=== PATIENT | female | born 1965 | race Caucasian/White ===

== ENCOUNTER 2024-07-18 14:56 | Outpatient (OUT) | payer BC, SELFPAY ==
--- NOTE | 2024-07-18 15:02 | CA_ITS ---
Patient Name: VERONICA BISHOP MR#: [id number] : 1965 Exam Date: 07/18/2024 Ordering Doctor: MARISOL GU M.D. ECHOCARDIOGRAM REPORT PROCEDURE: CA ECHO DOPPLER COMPLETE INDICATIONS: HORTA COMPARISON: None. DESCRIPTION: COMPLETE ECHOCARDIOGRAM Real-time transthoracic echocardiography with 2D, M-mode, spectral and color flow Doppler performed. QUALITY: Technical quality was adequate. LEFT VENTRICLE: Normal chamber size. Borderline left ventricular hypertrophy. Global left ventricular systolic function is normal. LV EF: Calculated left ventricular ejection fraction is 66% DIASTOLIC: Normal diastolic function. ATRIAL SEPTUM: LEFT ATRIUM: Normal chamber size. RIGHT ATRIUM: Mild dilatation. RIGHT VENTRICLE: Normal chamber size. Normal right ventricular systolic function. TRICUSPID VALVE: Normal mobility and thickness. No stenosis with mild regurgitation. Moderate pulmonary hypertension. RVSP 56 mmHg MITRAL VALVE: Normal mobility and thickness. No evidence of mitral valve stenosis. Mild mitral annular calcification. Trivial mitral regurgitation. AORTIC VALVE: Normal trileaflet appearance. No visible sclerosis. Normal leaflet mobility. No evidence of aortic valve stenosis. No aortic regurgitation. AORTIC ROOT: Normal diameter and appearance. Mildly dilated ascending aorta measuring 3.7 cm. PULMONIC VALVE: Normal thickness and mobility. No stenosis. Trivial regurgitation. PERICARDIUM: No evidence of pericardial effusion. IVC: Moderate dilatation. Partial collapse. PLEURA: CONCLUSION: 1. Normal left ventricular size and systolic function. Estimated LVEF is 60%. 2. Normal diastolic function. 3. Normal right ventricular size and systolic function. 4. Mild tricuspid regurgitation. 5. Moderately elevated right-sided pressures. RVSP is 56 mmHg. 6. Mildly dilated ascending aorta. 7. No pericardial effusion. Adult Echocardiography Procedure Report Left Ventricle LVEDD (3.7 - 5.6 cm): 5.24 cm LVESD (2.2 - 4.0 cm): 3.19 cm LVIVS thickness (0.6 - 1.2 cm): 1.00 cm LVPW thickness (0.5 - 1.0 cm): 0.94 cm e': 0.10 m/s E - e': 11.18 LVOT Max Gradient: 2.42 mm[Hg] LVOT Area (cm2): 0.78 m/s Peak Velocity (LVOT): 0.78 m/s Mean Velocity (LVOT): 0.56 m/s LVOT Diameter 2.25 cm Left Ventricular Ejection Fraction: 60 % Left Atrium LA Volume Index (2D A2C): 21.39 ml/m2 Left Atrium Systolic Dimension: 3.17 cm Mitral Valve MV E to A Ratio: 1.61 Mitral Valve A-Wave Peak Velocity: 0.66 m/s Mitral Valve E-Wave Peak Velocity: 1.07 m/s Right Ventricle RV Internal Diastolic Dimension: 4.16 cm Aorta AO Root Diam: 3.26 cm Ascending Ao Diam: 3.66 cm Aortic Valve AoV Area (Peak Jason): 2.58 cm2, 2.58 cm2 AoV Area (VTI): 2.62 cm2, 2.62 cm2 Peak Velocity(Antegrade Flow): 1.20 m/s Peak Gradient(Antegrade Flow): 5.78 mm[Hg] Mean Velocity(Antegrade Flow): 0.78 m/s Mean Gradient(Antegrade Flow): 2.85 mm[Hg] Velocity Time Integral: 26.99 cm Tricuspid Valve Peak Velocity (Regurgitant Flow): 2.20 m/s, 2.73 m/s, 3.22 m/s Pulmonic Valve Mean Gradient: 2.76 mm[Hg], 2.90 mm[Hg] Mean Velocity: 0.78 m/s, 0.79 m/s Peak Velocity: 1.20 m/s Peak Gradient: 5.32 mm[Hg], 6.22 mm[Hg] Right Atrium Right Atrium Systolic Pressure: 85.41 ml, 85.41 ml Dictated by: Abdoulaye Sotomayor M.D. on 07/18/2024 at 19:34 Approved by: Abdoulaye Sotomayor M.D. on 07/18/2024 at 19:37
== END 2024-07-18 14:57 | disposition home or self-care (01) ==
LOC: CARD 14:56
PROVIDERS: PCP Family Medicine; Visit Provider Internal Medicine Cardiovascular Disease
DX: R06.09 Other forms of dyspnea (principal)
CPT/HCPCS: 93306

== ENCOUNTER 2024-10-12 14:00 | Outpatient (OUT) | payer BC, SELFPAY ==
--- NOTE | 2024-10-12 14:00 | CA_ITS ---
Patient Name: VERONICA BISHOP MR#: [id number] : 1965 Exam Date: 10/12/2024 Ordering Doctor: MARISOL GU M.D. ECHOCARDIOGRAM REPORT PROCEDURE: CA ECHO DOPPLER COMPLETE INDICATIONS: Heart failure with reduced ejection fraction COMPARISON: None. DESCRIPTION: COMPLETE ECHOCARDIOGRAM Real-time transthoracic echocardiography with 2D, M-mode, spectral and color flow Doppler performed. QUALITY: Technical quality was fair. LEFT VENTRICLE: Normal chamber size. Mild concentric left ventricular hypertrophy. Systolic function is difficult to assess due to poor endocardial border definition but appears preserved. LV EF: Normal left ventricular ejection fraction, (55%). DIASTOLIC: Normal diastolic function. ATRIAL SEPTUM: Visually appears intact. LEFT ATRIUM: Normal chamber size. RIGHT ATRIUM: Normal chamber size. RIGHT VENTRICLE: Normal chamber size. Normal right ventricular systolic function. TRICUSPID VALVE: Normal mobility and thickness. No stenosis with trivial regurgitation. Doppler studies reveal mildly (35-45) elevated right sided pressures. RVSP 43 mmHg MITRAL VALVE: Normal mobility and thickness. No evidence of mitral valve stenosis. There is no mitral annular calcification. No mitral regurgitation. AORTIC VALVE: Not well visualized. No evidence of aortic valve stenosis. No aortic regurgitation. AORTIC ROOT: Normal diameter and appearance. Ascending aorta is mildly dilated (3.7 cm). PULMONIC VALVE: Not well visualized. No regurgitation. PERICARDIUM: No evidence of pericardial effusion. IVC: IVC is dilated (2.4 cm), does not fully collapse. PLEURA: CONCLUSION: 1. Mild concentric left ventricular hypertrophy. Systolic function is difficult to assess due to poor sound transmission but appears preserved. Estimated LVEF is 55%. 2. Normal diastolic function. 3. Normal right ventricular size and systolic function. 4. No significant valvular dysfunction. 5. Mildly elevated right-sided pressures. RVSP is 43 mmHg. 6. Mildly dilated ascending aorta. Adult Echocardiography Procedure Report Left Ventricle LVEDD (3.7 - 5.6 cm): 3.96 cm LVESD (2.2 - 4.0 cm): 2.96 cm LVIVS thickness (0.6 - 1.2 cm): 1.19 cm LVPW thickness (0.5 - 1.0 cm): 1.35 cm e': 0.14 m/s E - e': 6.52 LVOT Max Gradient: 3.12 mm[Hg] LVOT Area (cm2): 0.88 m/s Peak Velocity (LVOT): 0.88 m/s LVOT Diameter 2.31 cm Left Atrium LA Volume Index (2D A2C): 26.38 ml/m2 Left Atrium Systolic Dimension: 4.57 cm Mitral Valve MV E to A Ratio: 1.13 Mitral Valve A-Wave Peak Velocity: 0.81 m/s Mitral Valve E-Wave Peak Velocity: 0.91 m/s Right Ventricle Aorta AO Root Diam: 3.61 cm Ascending Ao Diam: 3.74 cm Aortic Valve AoV Area (Peak Jason): 3.01 cm2, 3.01 cm2 Peak Velocity(Antegrade Flow): 1.23 m/s Peak Gradient(Antegrade Flow): 6.06 mm[Hg] Tricuspid Valve Peak Velocity (Regurgitant Flow): 2.65 m/s Pulmonic Valve Peak Velocity: 0.94 m/s Peak Gradient: 4.27 mm[Hg], 2.92 mm[Hg] Right Atrium Right Atrium Systolic Pressure: 47.93 ml, 47.93 ml Dictated by: Abdoulaye Sotomayor M.D. on 10/12/2024 at 18:01 Approved by: Abdoulaye Sotomayor M.D. on 10/12/2024 at 18:05
== END 2024-10-12 14:01 | disposition home or self-care (01) ==
LOC: CARD 14:01
PROVIDERS: PCP Family Medicine; Visit Provider Internal Medicine Cardiovascular Disease
DX: I50.41 Acute combined systolic (congestive) and diastolic (congestive) heart failure (principal)
CPT/HCPCS: 93306